=== PATIENT | female | born 1970 | race Caucasian/White ===

== ENCOUNTER 2018-09-06 09:26 | Emergency (ER) | payer MEDICAID ==
[~2018-09-06] VITALS: Wt 78.0 kg
[2018-09-06 09:29] VITALS: BP 119/78; PULSE 78; RESP 18
[2018-09-06] MEDS ORDERED: ACETAMINOPHEN 325 MG TAB PO ONE (10:00)
[2018-09-06] MEDS ORDERED: LIDOCAINE 1% (MDV) 20 ML INJ SC ONE (10:00)
[2018-09-06] MEDS ORDERED: IBUP-1542 PO (10:29)
--- NOTE | 2018-09-06 10:32 | ERD ---
ER Documentation Chief Complaint Chief Complaint R BIG TOE INGROWN NAIL HPI 47-year-old female presents with pain swelling redness on the medial aspect of the right big toe for last few days. Denies previous history of ingrown toenails. Denies history of trauma. ROS All systems reviewed and are negative except as per history of present illness. Medications Home Meds Active Scripts Ibuprofen* (Motrin*) 600 Mg Tab, 600 MG PO Q6, #15 TAB Prov:RAULITO VILLAGRAN MD 09/06/18 PMhx/Soc Anesthesia Reaction: No Hx Neurological Disorder: No Hx Respiratory Disorders: No Hx Cardiac Disorders: No Hx Psychiatric Problems: No Hx Miscellaneous Medical Probl: No Hx Alcohol Use: No Hx Substance Use: No Hx Tobacco Use: No Smoking Status: Never smoker FmHx Family History: No diabetes, No coronary disease, No other Physical Exam Vitals Vital Signs Date Temp Pulse Resp B/P (MAP) Pulse Ox O2 O2 Flow FiO2 Time Delivery Rate 09/06/18 98.1 78 18 119/78 99 09:29 (92) Physical Exam Const: No acute distress Head: Atraumatic Eyes: Normal Conjunctiva ENT: Normal External Ears, Nose and Mouth. Neck: Full range of motion. No meningismus. Resp: Clear to auscultation bilaterally Cardio: Regular rate and rhythm, no murmurs Abd: Soft, non tender, non distended. Normal bowel sounds Skin: No petechiae or rashes Back: No midline or flank tenderness Ext: No cyanosis, or edema. Right big toe with redness and swelling associated with ingrown nail on the medial aspect of the right big toe. Neur: Awake and alert Psych: Normal Mood and Affect Results 24 hrs Current Medications Medications Dose Sig/Nellie Start Time Status Last (Trade) Ordered Route PRN Stop Time Admin Dose Reason Admin 650 mg ONCE ONCE 09/06/18 DC 09/06/18 Acetaminophen PO 10:00 10:06 (Tylenol 09/06/18 10:01 Tab) Lidocaine 20 ml ONCE ONCE 09/06/18 DC (Xylocaine SC 10:00 1% (Mdv) 20 09/06/18 10:01 ml) Procedures/MDM Patient presents with signs and symptoms of ingrown right big toenail. Patient has no signs or symptoms suggest also myelitis, fracture, dislocation, significant cellulitis, additional complications. Procedure note- Right big toe was prepped with Betadine. 3 cc lidocaine was used perform a digital block. Anesthesia was obtained. Ingrown portion of nail as well as some overlying skin was removed using clamps and scissors. Patient tolerated procedure well and the wound was dressed. He will be discharged home with instructions for wound care return precautions, redness, fevers, new worsening symptoms. The patient was stable with no new complaints during the ER course. Clinically, there is no current evidence to suggest meningitis, sepsis, acute abdomen, pneumonia, stroke, acute coronary syndrome, pulmonary embolism, aortic dissection or any other emergent condition appearing to require further evaluation or hospitalization. Patient counseled regarding my diagnostic impression and care plan. Prior to discharge all questions answered. Pt agrees with treatment plan and understands strict return precautions. Pt is instructed to follow up with primary care provider within 24- 48 hours. Precautionary instructions provided including instructions to return to the ER if not improving or for any worsening or changing symptoms or concerns. Departure Diagnosis: Primary Impression: Ingrown toenail Condition: Stable Patient Instructions: Ingrown Toenail, Excised Additional Instructions: Cheque otro vez con pelaez doctor primario en el proximo benjamin or regresa para mas o nueva simptomas. RAULITO VILLAGRAN MD Sep 06, 2018 10:32
== END 2018-09-06 10:36 | disposition home or self-care (01) ==
LOC: FTE 09:26
DX: L60.0 Ingrowing nail (principal)
CPT/HCPCS: 11765; Z7502; Z7610